=== PATIENT | male | born 1955 | race Hispanic/Latino ===

== ENCOUNTER → 2017-10-14 | Outpatient (CLI) | payer OTHER, MEDICARE | END | disposition home or self-care (01) | LOC: RAH 12:45 | PROVIDERS: ATTEND Internal Medicine Medical Oncology | DX: C73 Malignant neoplasm of thyroid gland (principal) | CPT/HCPCS: 76536 ==

== ENCOUNTER → 2017-12-29 | Outpatient (CLI) | payer OTHER, MEDICARE | END | disposition home or self-care (01) | LOC: RAH 12:43 | PROVIDERS: ATTEND Internal Medicine | DX: Z01.818 Encounter for other preprocedural examination (principal) | CPT/HCPCS: 71046 ==

== ENCOUNTER → 2020-01-09 | Outpatient (CLI) | payer OTHER, MEDICARE | END | disposition home or self-care (01) | LOC: RAH 11:14 | PROVIDERS: ATTEND Internal Medicine Medical Oncology | DX: C73 Malignant neoplasm of thyroid gland (principal) | CPT/HCPCS: 76536 ==

== ENCOUNTER → 2020-01-29 | Outpatient (CLI) | payer OTHER, MEDICARE | END | disposition home or self-care (01) | LOC: RAH 09:35 | PROVIDERS: ATTEND Internal Medicine | DX: M47.817 Spondylosis without myelopathy or radiculopathy, lumbosacral region (principal) | CPT/HCPCS: 72100 ==

== ENCOUNTER → 2020-10-30 | Outpatient (CLI) | payer OTHER, MEDICARE | END | disposition home or self-care (01) | LOC: RAH 09:03 | PROVIDERS: ATTEND Internal Medicine | DX: K76.0 Fatty (change of) liver, not elsewhere classified (principal); R10.11 Right upper quadrant pain; K76.89 Other specified diseases of liver | CPT/HCPCS: 76705 ==

== ENCOUNTER → 2020-11-26 | Outpatient (CLI) | payer OTHER, MEDICARE | END | disposition home or self-care (01) | LOC: RAH 09:35 | PROVIDERS: ATTEND Internal Medicine | DX: K76.89 Other specified diseases of liver (principal); K76.0 Fatty (change of) liver, not elsewhere classified | CPT/HCPCS: 74170 ==

== ENCOUNTER → 2021-11-27 | Outpatient (CLI) | payer OTHER, MEDICARE ==
[~2021-11-27] MED LIST: IOHEXOL 350 MG/ML 100ML INFUS..BTL IV ONE
== END | disposition home or self-care (01) ==
LOC: RAH 08:30
PROVIDERS: ATTEND Internal Medicine Gastroenterology
DX: K76.89 Other specified diseases of liver (principal); K44.9 Diaphragmatic hernia without obstruction or gangrene; R93.2 Abnormal findings on diagnostic imaging of liver and biliary tract; M47.815 Spondylosis without myelopathy or radiculopathy, thoracolumbar region; N28.1 Cyst of kidney, acquired
CPT/HCPCS: 74170; Q9967

== ENCOUNTER → 2022-02-09 | Outpatient (CLI) | payer OTHER, MEDICARE | END | disposition home or self-care (01) | LOC: RAH 11:46 | PROVIDERS: ATTEND Internal Medicine | DX: M77.31 Calcaneal spur, right foot (principal); M79.671 Pain in right foot; M19.071 Primary osteoarthritis, right ankle and foot | CPT/HCPCS: 73630 ==

== ENCOUNTER 2022-07-14 11:26 | Emergency (ER) | payer OTHER, MEDICARE ==
[~2022-07-14] VITALS: Ht 167.6 cm; Wt 83.0 kg
[2022-07-14 11:46] LABS: BASOPHILS % (AUTO) 0.7 % (0.0-5.0); EOSINOPHILS % (AUTO) 1.4 % (0.0-8.0); LYMPHOCYTES % (AUTO) 17.6 % (21.0-51.0); MEAN CORPUSCULAR HEMOGLOBIN 35.5 pg (27.0-33.0); MEAN CORPUSCULAR HGB CONC 36.1 g/dL (32.0-36.0); MEAN CORPUSCULAR VOLUME 98.2 fL (79-99); MONOCYTES % (AUTO) 7.2 % (3.0-13.0); PLATELET COUNT (AUTO) 165 K/uL (130-400); RED BLOOD CELL COUNT(AUTO) 4.99 MIL/uL (4.50-6.20); RED CELL DISTRIBUTION WIDTH 12.8 % (11.0-15.5)
[2022-07-14 12:06] LABS: MAGNESIUM 1.8 mg/dL (1.80-2.40); POTASSIUM 3.7 mmol/L (3.5-5.1); TOTAL PROTEIN, SERUM 7.4 g/dL (6.0-8.3)
[2022-07-14 12:27] LABS: B-TYPE NATRIURETIC PEPTIDE 11 pg/mL (0-100)
[2022-07-14] MEDS ORDERED: ASPIRIN 325MG EC TAB PO SCH (12:30)
[2022-07-14] MEDS ORDERED: MAG/ALUM/SIMETH 30 ML UDCUP PO ONE (13:30)
[2022-07-14] MEDS ORDERED: LIDOCAINE HCL 2% VISCOUS 15 ML UDCUP PO SCH (13:30)
[2022-07-14 13:32] LABS: APPEARANCE,URINE CLEAR (CLEAR); BILIRUBIN,URINE NEGATIVE (NEGATIVE); COLOR,URINE COLORLESS (YELLOW); GLUCOSE, URINE (UA) NEGATIVE (NEGATIVE); KETONES,URINE NEGATIVE (NEGATIVE); LEUKOCYTE ESTERASE ,URINE NEGATIVE Leu/uL (NEGATIVE); NITRATE,URINE NEGATIVE (NEGATIVE); OCCULT BLOOD,URINE NEGATIVE (NEGATIVE); PROTEIN,URINE NEGATIVE (NEGATIVE); UROBILINOGEN,URINE 0.2 mg/dL (0.2-1.0)
[2022-07-14 14:27] VITALS: BP 143/95
== END 2022-07-14 15:06 | disposition home or self-care (01) ==
LOC: EDH 11:26
DX: R00.2 Palpitations (principal); R33.9 Retention of urine, unspecified; I10 Essential (primary) hypertension
CPT/HCPCS: 36415; 51702; 71045; 80053; 81003; 83735; 83880; 84484; 85025; 93005

== ENCOUNTER 2022-07-15 18:29 | Emergency (ER) | payer OTHER, MEDICARE ==
[~2022-07-15] VITALS: Ht 167.6 cm; Wt 83.0 kg
[2022-07-15 20:35] VITALS: BP 133/85
== END 2022-07-15 20:36 | disposition home or self-care (01) ==
LOC: EDH 18:29
DX: T83.091A Other mechanical complication of indwelling urethral catheter, initial encounter (principal); D64.9 Anemia, unspecified; I10 Essential (primary) hypertension; Z98.890 Other specified postprocedural states
CPT/HCPCS: 51702

== ENCOUNTER 2022-07-27 10:42 | Emergency (ER) | payer OTHER, MEDICARE ==
[~2022-07-27] VITALS: Ht 167.6 cm; Wt 83.0 kg
[2022-07-27 11:33] LABS: APPEARANCE,URINE CLOUDY (CLEAR); BILIRUBIN,URINE NEGATIVE (NEGATIVE); COLOR,URINE YELLOW (YELLOW); GLUCOSE, URINE (UA) NEGATIVE (NEGATIVE); KETONES,URINE NEGATIVE (NEGATIVE); LEUKOCYTE ESTERASE ,URINE 500 Leu/uL (NEGATIVE); NITRATE,URINE NEGATIVE (NEGATIVE); OCCULT BLOOD,URINE MODERATE (NEGATIVE); PH,URINE 5.5 (5.0-8.0); PROTEIN,URINE NEGATIVE (NEGATIVE); UROBILINOGEN,URINE 0.2 mg/dL (0.2-1.0)
[2022-07-27 12:28] LABS: BACTERIA,URINE MANY /HPF (None Seen); MUCUS,URINE RARE LPF (None Seen); WBC,URINE 51-100 /HPF (0-1)
[2022-07-27] MEDS ORDERED: CEPH500B PO (12:41)
[2022-07-27 12:43] VITALS: BP 143/84
== END 2022-07-27 12:54 | disposition home or self-care (01) ==
LOC: EDH 10:42
DX: T83.098A Other mechanical complication of other urinary catheter, initial encounter (principal); N39.0 Urinary tract infection, site not specified; D64.9 Anemia, unspecified; I10 Essential (primary) hypertension; Z90.89 Acquired absence of other organs
CPT/HCPCS: 81001; 87077; 87088; 87186

== ENCOUNTER 2022-08-11 05:03 | Emergency (ER) | payer OTHER, MEDICARE ==
[~2022-08-11] VITALS: Ht 167.6 cm; Wt 85.3 kg
[~2022-08-11 05:03] MED LIST changes: +CEPH500B PO; -IOHEXOL 350 MG/ML 100ML INFUS..BTL IV ONE
[2022-08-11 05:04] VITALS: BP 146/99
== END 2022-08-11 05:52 | disposition home or self-care (01) ==
LOC: EDH 05:09
DX: R33.9 Retention of urine, unspecified (principal); I10 Essential (primary) hypertension; Z90.89 Acquired absence of other organs
CPT/HCPCS: 51702

== ENCOUNTER → 2022-08-19 | Outpatient (CLI) | payer OTHER, MEDICARE | END | disposition home or self-care (01) | LOC: RAH 03:11 | PROVIDERS: ATTEND Urology | DX: N40.0 Benign prostatic hyperplasia without lower urinary tract symptoms (principal); K76.89 Other specified diseases of liver; K59.00 Constipation, unspecified; R33.8 Other retention of urine | CPT/HCPCS: 74176 ==

== ENCOUNTER → 2022-09-02 | Outpatient (CLI) | payer OTHER, MEDICARE | END | disposition home or self-care (01) | LOC: RAH 11:14 | DX: Z01.818 Encounter for other preprocedural examination (principal); Z13.31 Encounter for screening for depression; Z13.39 Encounter for screening examination for other mental health and behavioral disorders; M47.815 Spondylosis without myelopathy or radiculopathy, thoracolumbar region; R32 Unspecified urinary incontinence; R33.9 Retention of urine, unspecified; N40.1 Benign prostatic hyperplasia with lower urinary tract symptoms; Z97.8 Presence of other specified devices | CPT/HCPCS: 71046 ==

== ENCOUNTER → 2023-09-08 | Outpatient (CLI) | payer OTHER, MEDICARE | END | disposition home or self-care (01) | LOC: LAB 11:17 | PROVIDERS: ATTEND Urology | DX: N40.1 Benign prostatic hyperplasia with lower urinary tract symptoms (principal) | CPT/HCPCS: 36415; 84153; 84154 ==

== ENCOUNTER → 2024-11-21 | Outpatient (CLI) | payer OTHER, MEDICARE ==
--- NOTE | 2024-11-21 12:35 | HMCIMG ---
ABD COMP DECUB/ERECT VWS HISTORY: Epigastric pain COMPARISON: None FINDINGS: Two views of the abdomen were obtained. A nonspecific bowel gas pattern is seen. Fecal material is seen in the colon. There is no evidence of free intraperitoneal air. Degenerative changes of the thoracolumbar spine are present. There is dextroscoliosis. Findings are suggestive of constipation. IMPRESSION: 1. A nonspecific bowel gas pattern.
== END | disposition home or self-care (01) ==
LOC: LAB 11:13
PROVIDERS: ATTEND Internal Medicine
DX: R10.13 Epigastric pain (principal); M47.815 Spondylosis without myelopathy or radiculopathy, thoracolumbar region; M41.86 Other forms of scoliosis, lumbar region
CPT/HCPCS: 74021

== ENCOUNTER → 2025-03-29 | Outpatient (CLI) | payer OTHER, MEDICAID ==
[2025-03-29 11:29] LABS: ASPARTATE AMINOTRANSFERASE 19.0 U/L (10-37); CREATININE 1.0 mg/dL (0.5-1.3); GLOMERULAR FILTR. RATE CALC 81.0 mL/min (>90); GLUCOSE,RANDOM 142.0 mg/dL (70-105); LDL DIRECT 63.0 mg/dL (0-99); SODIUM SERUM 139.0 mmol/L (136-145); TOTAL PROTEIN, SERUM 6.7 g/dL (6.0-8.3); UREA NITROGEN, BLOOD 21.0 mg/dL (7-18)
[2025-03-30 15:40] LABS: HEPATITIS B SURFACE ANTIBODY Negative (Reactive)
== END | disposition home or self-care (01) ==
LOC: LAB 07:58
PROVIDERS: ATTEND Clinical Nurse Specialist Family Health
DX: C73 Malignant neoplasm of thyroid gland (principal); E89.0 Postprocedural hypothyroidism; E78.00 Pure hypercholesterolemia, unspecified; K76.0 Fatty (change of) liver, not elsewhere classified; K21.9 Gastro-esophageal reflux disease without esophagitis; R93.2 Abnormal findings on diagnostic imaging of liver and biliary tract; K62.89 Other specified diseases of anus and rectum; Z11.59 Encounter for screening for other viral diseases
CPT/HCPCS: 36415; 80053; 80061; 84439; 84443; 86706; 86708; 86803

== ENCOUNTER → 2025-05-21 | Outpatient (CLI) | payer OTHER, MEDICAID ==
--- NOTE | 2025-05-21 18:08 | HMCIMG ---
EXAM: CR right Finger, 3 View. CLINICAL HISTORY: CONTUSION OF RIGHT THUMB W/DAMAGE TO NAIL; PAIN IN RIGHT FINGER COMPARISON: None provided. FINDINGS: BONES: No acute fracture or aggressive appearing osseous lesion. JOINTS: No dislocation. The joint spaces are normal. SOFT TISSUES: The soft tissues are unremarkable. IMPRESSION: No acute osseous abnormality. No acute fracture or dislocation. /[place]
== END | disposition home or self-care (01) ==
LOC: RAH 15:50
PROVIDERS: ATTEND Clinical Nurse Specialist Family Health
DX: S60.111A Contusion of right thumb with damage to nail, initial encounter (principal); M79.644 Pain in right finger(s); X58.XXXA Exposure to other specified factors, initial encounter; Y93.89 Activity, other specified; Y92.89 Other specified places as the place of occurrence of the external cause; Y99.8 Other external cause status
CPT/HCPCS: 73140